=== PATIENT | male | born 1940 | race Caucasian/White ===

== ENCOUNTER 2021-12-22 18:44 | Inpatient (IN) | payer MEDICARE, BC ==
[~2021-12-22] VITALS: Ht 182.9 cm; Wt 83.9 kg
[2021-12-22 10:25] VITALS: BP 149/75
--- NOTE | 2021-12-22 22:30 | NUR ---
Admitted from [facility] via gurney Dx: Lumbar stenosis, s/p L2-S1 decompression sx. Back sx incision intact, no foul odor, dressing changed prior to transfer. Alert and oriented x4, not in resp distress. Routine admission care rendered. Oriented to room, BR, TV and call light. Initiated care plan. Needs assessed and attended to. Call light placed within easy reach.
[2021-12-23] MEDS ORDERED: PRAV40TA3 PO ×2 (00:09→10:23)
[2021-12-23] MEDS ORDERED: FINA1TAB11 PO (00:09)
[2021-12-23] MEDS ORDERED: MAGN400T26 PO (00:09)
[2021-12-23] MEDS ORDERED: GABA-532 PO (00:09)
[2021-12-23] MEDS ORDERED: AMLO5TAB4 PO (00:09)
[2021-12-23] MEDS ORDERED: SENN-261 PO (00:29)
[2021-12-23] MEDS ORDERED: HYDR-4209 PO (00:29)
[2021-12-23] MEDS ORDERED: ONDA4TAB11 PO (00:29)
[2021-12-23] MEDS ORDERED: HYDR-3980 PO (00:29)
[2021-12-23] MEDS ORDERED: OLME40TA12 PO ×2 (00:29→10:23)
[2021-12-23] MEDS ORDERED: DOCU100C36 PO (00:29)
[2021-12-23] MEDS ORDERED: CYCL5TAB PO (00:29)
[2021-12-23] MEDS ORDERED: MULT-213 PO (00:29)
[2021-12-23] MEDS ORDERED: TAMS-3 PO (00:29)
[2021-12-23] MEDS ORDERED: TADA5TAB2 PO (00:29)
[2021-12-23 04:00] VITALS: BP 134/68
[2021-12-23] MEDS ORDERED: HYDROCODONE/APAP 5-325MG TABLET PO PRN ×2 (04:45→15:00)
[2021-12-23 08:00] VITALS: BP 124/63
[2021-12-23] MEDS: REMEDY ESSENTIAL ZINC PASTE 113 GM TOP SCH ×2 (09:43→20:53)
[2021-12-23] MEDS ORDERED: CYCLOBENZAPRINE HCL 10 MG TABLET PO PRN (10:00)
[2021-12-23] MEDS ORDERED: ONDANSETRON HCL 4 MG TABLET PO PRN (10:00)
[2021-12-23] MEDS ORDERED: MAGNESIUM OXIDE 400 MG TABLET PO ONE (10:00)
[2021-12-23] MEDS ORDERED: DOCUSATE SODIUM 100 MG CAPSULE PO PRN ×2 (10:00→15:17)
[2021-12-23] MEDS ORDERED: SENNOSIDES 1 TABLET PO PRN (10:00)
[2021-12-23 10:58] LABS: HEMATOCRIT 30.4 % (36.7-47.1); MEAN CORPUSCULAR HEMOGLOBIN 32.5 uug (23.8-33.4); MEAN CORPUSCULAR VOLUME 96.2 fL (73.0-96.2); PLATELET COUNT (AUTO) 150 K/uL (152-348)
[2021-12-23 11:11] LABS: BILIRUBIN,TOTAL 0.4 mg/dL (0.2-1.0); CREATININE 1.3 mg/dL (0.6-1.3); MAGNESIUM 1.8 mg/dL (1.8-2.4); PHOSPHOROUS 2.1 mg/dL (2.5-4.9); POTASSIUM 3.8 mmol/L (3.5-5.1); TOTAL PROTEIN, SERUM 6.1 g/dL (6.4-8.2)
[2021-12-23] MEDS: GABAPENTIN 300 MG CAPSULE PO SCH ×3 (13:53→20:53)
[2021-12-23] MEDS ORDERED: ONDANSETRON ODT 4 MG TAB.RAPDIS SL PRN (15:00)
[2021-12-23] MEDS: AMLODIPINE 5 MG TABLET PO SCH (15:31)
[2021-12-23 16:00] VITALS: BP 148/76
[2021-12-23] MEDS ORDERED: NEUTRA PHOS PACKET PO ONE (16:00)
[2021-12-23] MEDS ORDERED: GABAPENTIN 100 MG CAPSULE PO SCH (17:00)
[2021-12-23] MEDS ORDERED: DOCUSATE SODIUM 100 MG CAPSULE PO SCH (17:00)
[2021-12-23] MEDS ORDERED: Medication Not On Formulary EA (Cyclobenzaprine Hcl 5 MG) PO SCH (17:00)
[2021-12-23] MEDS ORDERED: SENNOSIDES 1 TABLET PO SCH (17:00)
--- NOTE | 2021-12-23 20:00 | NUR ---
NSG: Received patient lying in bed. alert and oriented x4, no c/o pain or discomfort at this time. assisted to use bedside commode. and back to bed. call light w/in reach.
[2021-12-23 20:06] VITALS: BP 115/55
[2021-12-23] MEDS: TAMSULOSIN HCL 0.4 MG CAP.SR.24H PO SCH (20:53)
[2021-12-23] MEDS: ATORVASTATIN 10 MG TABLET PO SCH (20:53)
[2021-12-24 04:00] VITALS: BP 137/76
--- NOTE | 2021-12-24 04:15 | NUR ---
senokot 1 tab po given Early due to patient constipated.
--- NOTE | 2021-12-24 06:36 | NUR ---
remain calm and cooperative with meds and care. patient still constipated. 240 ml prune juice po given. resting in bed.call light w/in reach.
[2021-12-24 07:33] VITALS: BP 139/75
[2021-12-24 07:47] LABS: THYROID STIMULATING HORMONE 1.125 mIU/mL (0.358-3.740)
[2021-12-24] MEDS ORDERED: MULTIVITAMINS,THERAPEUTIC TABLET PO SCH (09:00)
[2021-12-24] MEDS ORDERED: TAMSULOSIN HCL 0.4 MG CAP.SR.24H PO SCH (09:00)
[2021-12-24] MEDS ORDERED: Medication Not On Formulary EA (Multivitamins W-Minerals (Multivitamin With Minerals) 1 PO SCH (09:00)
[2021-12-24] MEDS ORDERED: AMLODIPINE 5 MG TABLET PO SCH (09:00)
[2021-12-24] MEDS ORDERED: Medication Not On Formulary EA (Finasteride 1 MG) PO SCH (09:00)
[2021-12-24] MEDS ORDERED: Medication Not On Formulary EA (Olmesartan Medoxomil (Benicar) 40 MG) PO SCH (09:00)
[2021-12-24] MEDS ORDERED: MAGNESIUM OXIDE 400 MG TABLET PO SCH (09:00)
[2021-12-24] MEDS: GABAPENTIN 300 MG CAPSULE PO SCH ×4 (09:48→21:08)
[2021-12-24] MEDS: FINASTERIDE 5 MG TABLET PO SCH (09:49)
[2021-12-24] MEDS: MULTIVIT, IRON, MIN NO. 8, FA TABLET PO SCH (09:49)
[2021-12-24] MEDS: LOSARTAN POTASSIUM 50 MG TABLET PO SCH (09:49)
[2021-12-24] MEDS: MAGNESIUM OXIDE 400 MG TABLET PO SCH (09:49)
[2021-12-24] MEDS: AMLODIPINE 5 MG TABLET PO SCH (09:49)
[2021-12-24] MEDS: REMEDY ESSENTIAL ZINC PASTE 113 GM TOP SCH ×2 (09:50→21:00)
[2021-12-24] MEDS: DOCUSATE SODIUM 100 MG CAPSULE PO SCH ×2 (13:29→20:59)
[2021-12-24] MEDS: SENNOSIDES 1 TABLET PO SCH ×2 (13:30→20:59)
[2021-12-24 16:10] VITALS: BP 135/62
[2021-12-24] MEDS: ENSURE ENLIVE (VAN) 240 ML LIQUID PO SCH (17:08)
[2021-12-24 20:00] VITALS: BP 123/59
--- NOTE | 2021-12-24 20:30 | NUR ---
PATIENT TEMP 101.0. B/P 123/59 HR 85 RESP 18 SAT 94% IN R00M AIR. jeremi Cheek made aware via phone. tylenol 650 mg po given as ordered. cooling measure provided. encouraged po intake. stat blood culture done. waiting for chest x-ray. patient is resting in bed comfortably. call light w/in reach.
[2021-12-24] MEDS: ATORVASTATIN 10 MG TABLET PO SCH (20:59)
[2021-12-24] MEDS: TAMSULOSIN HCL 0.4 MG CAP.SR.24H PO SCH (20:59)
[2021-12-24] MEDS: ACETAMINOPHEN 325 MG TABLET PO PRN (20:59)
[2021-12-24 21:00] VITALS: BP 125/62
--- NOTE | 2021-12-24 21:00 | NUR ---
NSG: ROBY collected and sent to lab.
[2021-12-24 21:20] LABS: HEMATOCRIT 29.7 % (36.7-47.1); MEAN CORPUSCULAR VOLUME 95.5 fL (73.0-96.2); PLATELET COUNT (AUTO) 159 K/uL (152-348)
[2021-12-24 21:23] LABS: CREATININE 1.1 mg/dL (0.6-1.3); POTASSIUM 3.8 mmol/L (3.5-5.1)
[2021-12-24 21:46] LABS: *BILIRUBIN,URIN NEGATIVE (NEGATIVE); *BLOOD, URINE 1+ (NEGATIVE); *CLARITY,URINE CLEAR (CLEAR); *COLOR,URINE YELLOW (YELLOW); *KETONES,URINE NEGATIVE (NEGATIVE); *UROBILINOGEN,URINE 0.2 E.U./dl (NORMAL); LEUKOCYTE ESTERASE ,URINE NEGATIVE (NEGATIVE); NITRITE, URINE NEGATIVE (NEGATIVE); PH,URINE 6.5 (5.0-8.0); UGLUCOSE NEGATIVE (NEGATIVE)
[2021-12-24 21:56] LABS: BACTERIA,URINE FEW /HPF (NONE SEEN); RBC,URINE 0-3 /HPF (0-3); SQUAMOUS EPITHELIAL CELL,UR FEW /HPF (NONE SEEN); WBC,URINE 0-3 /HPF (0-3)
--- NOTE | 2021-12-24 22:31 | NUR ---
NSG: Dressing changed. incision intact, no foul odor, yellowish draining noted.patient is Alert and oriented x4, not in resp distress. Resting in bed comfortably. call light w/in reach.
--- NOTE | 2021-12-25 05:31 | NUR ---
nsg: patient resting in bed comfortably. respiration even and unlabored. uses urinal. incision dressing c/d/i. no c/o pain or discomfort at this time. call light w/in reach.
[2021-12-25 07:43] VITALS: BP 135/79
[2021-12-25] MEDS: MAGNESIUM OXIDE 400 MG TABLET PO SCH (08:17)
[2021-12-25] MEDS: SENNOSIDES 1 TABLET PO SCH ×2 (08:17→20:28)
[2021-12-25] MEDS: FINASTERIDE 5 MG TABLET PO SCH (08:17)
[2021-12-25] MEDS: MULTIVIT, IRON, MIN NO. 8, FA TABLET PO SCH (08:17)
[2021-12-25] MEDS: LOSARTAN POTASSIUM 50 MG TABLET PO SCH (08:17)
[2021-12-25] MEDS: GABAPENTIN 300 MG CAPSULE PO SCH ×4 (08:17→20:27)
[2021-12-25] MEDS: AMLODIPINE 5 MG TABLET PO SCH (08:17)
[2021-12-25] MEDS: ENSURE ENLIVE (VAN) 240 ML LIQUID PO SCH ×2 (08:18→17:00)
[2021-12-25] MEDS: DOCUSATE SODIUM 100 MG CAPSULE PO SCH ×2 (08:18→20:27)
[2021-12-25] MEDS: REMEDY ESSENTIAL ZINC PASTE 113 GM TOP SCH ×2 (09:06→20:28)
--- NOTE | 2021-12-25 12:45 | NUR ---
INDIVIDUALIZED PLAN OF CARE
[2021-12-25] MEDS: ACETAMINOPHEN 325 MG TABLET PO PRN (14:05)
[2021-12-25 17:05] VITALS: BP 102/55
[2021-12-25] MEDS: TADALAFIL 10 MG PO SCH (18:03)
[2021-12-25 20:00] VITALS: BP 108/48
[2021-12-25] MEDS: TAMSULOSIN HCL 0.4 MG CAP.SR.24H PO SCH (20:27)
[2021-12-25] MEDS: ATORVASTATIN 10 MG TABLET PO SCH (20:28)
[2021-12-26 04:00] VITALS: BP 108/57
[2021-12-26 08:07] VITALS: BP 124/75
[2021-12-26] MEDS: ENSURE ENLIVE (VAN) 240 ML LIQUID PO SCH ×2 (08:41→17:07)
[2021-12-26] MEDS: MAGNESIUM OXIDE 400 MG TABLET PO SCH (08:43)
[2021-12-26] MEDS: FINASTERIDE 5 MG TABLET PO SCH (08:43)
[2021-12-26] MEDS: GABAPENTIN 300 MG CAPSULE PO SCH ×4 (08:43→21:10)
[2021-12-26] MEDS: MULTIVIT, IRON, MIN NO. 8, FA TABLET PO SCH (08:43)
[2021-12-26] MEDS: AMLODIPINE 5 MG TABLET PO SCH (08:47)
[2021-12-26] MEDS: SENNOSIDES 1 TABLET PO SCH ×2 (08:56→21:10)
[2021-12-26] MEDS: DOCUSATE SODIUM 100 MG CAPSULE PO SCH ×2 (08:56→21:10)
[2021-12-26] MEDS: REMEDY ESSENTIAL ZINC PASTE 113 GM TOP SCH ×2 (08:57→21:10)
[2021-12-26] MEDS: TADALAFIL 10 MG PO SCH (12:38)
[2021-12-26] MEDS ORDERED: MAG HYDROX/AL HYDROX/SIMETH 30 ML LIQUID UDC PO PRN (13:15)
[2021-12-26] MEDS: PANTOPRAZOLE SODIUM 40 MG TABLET.DR PO SCH (13:25)
--- NOTE | 2021-12-26 13:25 | NUR ---
c/o of acid reflux, seen by dr Hernandez- with orders, maalox given ans Protonix as well
--- NOTE | 2021-12-26 16:00 | NUR ---
states acid reflux better, at bedside
[2021-12-26] MEDS: ACETAMINOPHEN 325 MG TABLET PO PRN (16:03)
[2021-12-26 16:35] VITALS: BP 118/63
--- NOTE | 2021-12-26 16:45 | NUR ---
informed hospitalist of elevated temp- orders given urine, cooling measures given
--- NOTE | 2021-12-26 18:14 | NUR ---
temp rechecked 99.0 orally- urine sent to lab
[2021-12-26 19:14] LABS: *BILIRUBIN,URIN NEGATIVE (NEGATIVE); *BLOOD, URINE NEGATIVE (NEGATIVE); *CLARITY,URINE CLEAR (CLEAR); *COLOR,URINE YELLOW (YELLOW); *KETONES,URINE NEGATIVE (NEGATIVE); *UROBILINOGEN,URINE 0.2 E.U./dl (NORMAL); LEUKOCYTE ESTERASE ,URINE NEGATIVE (NEGATIVE); NITRITE, URINE NEGATIVE (NEGATIVE); PH,URINE 5.5 (5.0-8.0); UGLUCOSE NEGATIVE (NEGATIVE)
[2021-12-26 19:24] LABS: BACTERIA,URINE FEW /HPF (NONE SEEN); RBC,URINE NONE SEEN /HPF (0-3); SQUAMOUS EPITHELIAL CELL,UR FEW /HPF (NONE SEEN); WBC,URINE 0-3 /HPF (0-3)
[2021-12-26 19:25] LABS: COARSE GRANULAR CASTS,URINE 0-3 /LPF
[2021-12-26 20:00] VITALS: BP 103/49
[2021-12-26] MEDS: ATORVASTATIN 10 MG TABLET PO SCH (21:10)
[2021-12-26] MEDS: TAMSULOSIN HCL 0.4 MG CAP.SR.24H PO SCH (21:10)
--- NOTE | 2021-12-27 | NUR ---
RECEIVED PT ALERT AND ORIENTED X4 PT WAS GIVEN MEDICATION ORDERED NO SIGNS OF ADVERSE REACTION FROM PAIN MEDICATIONS WILL ENDORSE TO AM NURSE.
[2021-12-27 04:00] VITALS: BP 115/50
[2021-12-27] MEDS: PANTOPRAZOLE SODIUM 40 MG TABLET.DR PO SCH (06:39)
[2021-12-27 06:47] LABS: HEMATOCRIT 27.2 % (36.7-47.1); MEAN CORPUSCULAR HEMOGLOBIN 32.8 uug (23.8-33.4); MEAN CORPUSCULAR VOLUME 92.7 fL (73.0-96.2); PLATELET COUNT (AUTO) 198 K/uL (152-348)
[2021-12-27 06:50] LABS: BILIRUBIN,TOTAL 0.5 mg/dL (0.2-1.0); CREATININE 1.2 mg/dL (0.6-1.3); PHOSPHOROUS 4.1 mg/dL (2.5-4.9); POTASSIUM 3.6 mmol/L (3.5-5.1); TOTAL PROTEIN, SERUM 5.5 g/dL (6.4-8.2)
[2021-12-27 07:56] VITALS: BP 111/56
--- NOTE | 2021-12-27 08:30 | NUR ---
Dr Suarez saw pt- informed of elevated yesterday-pt resting in bed, denies of any discomfort, call light within reach
[2021-12-27] MEDS: ENSURE ENLIVE (VAN) 240 ML LIQUID PO SCH ×2 (09:13→17:38)
[2021-12-27] MEDS: TADALAFIL 10 MG PO SCH (09:15)
[2021-12-27] MEDS: DOCUSATE SODIUM 100 MG CAPSULE PO SCH ×2 (09:17→20:36)
[2021-12-27] MEDS: SENNOSIDES 1 TABLET PO SCH ×2 (09:17→20:35)
[2021-12-27] MEDS: FINASTERIDE 5 MG TABLET PO SCH (09:17)
[2021-12-27] MEDS: MULTIVIT, IRON, MIN NO. 8, FA TABLET PO SCH (09:17)
[2021-12-27] MEDS: GABAPENTIN 300 MG CAPSULE PO SCH ×4 (09:17→20:35)
[2021-12-27] MEDS: MAGNESIUM OXIDE 400 MG TABLET PO SCH (09:18)
[2021-12-27] MEDS: REMEDY ESSENTIAL ZINC PASTE 113 GM TOP SCH ×2 (09:18→20:24)
[2021-12-27 12:06] LABS: HEMATOCRIT 31.5 % (36.7-47.1); MEAN CORPUSCULAR HEMOGLOBIN 32.1 uug (23.8-33.4); MEAN CORPUSCULAR VOLUME 94.8 fL (73.0-96.2); PLATELET COUNT (AUTO) 258 K/uL (152-348)
[2021-12-27 12:24] LABS: CARBON DIOXIDE 30 mmol/L (21-32); CHLORIDE 102 mmol/L (98-107); CREATININE 1.4 mg/dL (0.6-1.3); GLUCOSE 104 mg/dL (74-106); POTASSIUM 3.1 mmol/L (3.5-5.1); UREA NITROGEN, BLOOD 30 mg/dL (7-18)
[2021-12-27 12:30] LABS: ALANINE AMINOTRANSFERASE 82 U/L (16-63); ALKALINE PHOSPHATASE 215 U/L (50-136); BILIRUBIN,TOTAL 0.4 mg/dL (0.2-1.0); TOTAL PROTEIN, SERUM 6.7 g/dL (6.4-8.2)
[2021-12-27 12:54] LABS: ASPARTATE AMINOTRANSFERASE 65 U/L (15-37)
[2021-12-27 16:00] VITALS: BP 119/68
--- NOTE | 2021-12-27 18:20 | NUR ---
participated with his rehab therapy, no distress noted, all needs attended and met, call light within reach
[2021-12-27] MEDS: TAMSULOSIN HCL 0.4 MG CAP.SR.24H PO SCH (20:35)
[2021-12-27] MEDS: ATORVASTATIN 10 MG TABLET PO SCH (20:35)
--- NOTE | 2021-12-27 20:35 | NUR ---
due po medication given to patient tolerated with sips of water . [id number].no s/s of respiratory distress noted . advised patient to call and to used the call light if he needs help . patient verbalized understanding .
[2021-12-27 20:50] VITALS: BP 109/47
--- NOTE | 2021-12-27 22:30 | NUR ---
rounds made patient in bed pts. verbalized his going to sleep now , advised patient to call for help and to used the [employer] system patient verbalized understanding . urinal placed with in reach.
[2021-12-28 04:20] VITALS: BP 116/67
[2021-12-28] MEDS: PANTOPRAZOLE SODIUM 40 MG TABLET.DR PO SCH (06:23)
[2021-12-28 08:09] VITALS: BP 137/71
[2021-12-28] MEDS: MULTIVIT, IRON, MIN NO. 8, FA TABLET PO SCH (08:25)
[2021-12-28] MEDS: GABAPENTIN 300 MG CAPSULE PO SCH ×2 (08:25→13:13)
[2021-12-28] MEDS: DOCUSATE SODIUM 100 MG CAPSULE PO SCH (08:25)
[2021-12-28] MEDS: FINASTERIDE 5 MG TABLET PO SCH (08:25)
[2021-12-28] MEDS: SENNOSIDES 1 TABLET PO SCH (08:25)
[2021-12-28] MEDS: REMEDY ESSENTIAL ZINC PASTE 113 GM TOP SCH (08:26)
[2021-12-28] MEDS: MAGNESIUM OXIDE 400 MG TABLET PO SCH (08:26)
[2021-12-28] MEDS: TADALAFIL 10 MG PO SCH (08:27)
[2021-12-28] MEDS: ENSURE ENLIVE (VAN) 240 ML LIQUID PO SCH (08:28)
[2021-12-28] MEDS ORDERED: AMLO5TAB4 PO (11:12)
[2021-12-28] MEDS ORDERED: DOCU100C36 PO (11:12)
[2021-12-28] MEDS ORDERED: FINA1TAB11 PO (11:12)
[2021-12-28] MEDS ORDERED: OLME40TA12 PO (11:12)
[2021-12-28] MEDS ORDERED: TADA5TAB2 PO (11:12)
[2021-12-28] MEDS ORDERED: GABA-532 PO (11:12)
[2021-12-28] MEDS ORDERED: TAMS-3 PO (11:12)
[2021-12-28] MEDS ORDERED: PRAV40TA3 PO (11:12)
--- NOTE | 2021-12-28 11:35 | NUR ---
0730-Rec'd patient in bed, awake, A/Ox4, no respiratory distress noted. Patient is Mongolian/Hungarian speaking, safety measures in place, call light at reach, encouraged to please use it every time help is needed with good understanding. 0900-Scheduled/due medication administered with no ASE noted, patient still eating breakfast at this time. No swallowing difficulties noted, oral fluids taken well.Patient denies pain, will be discharge later on in the day. Assist with ADLs and as needed. 1100-Dr.Berg Arriaga finalizing discharge orders at this time. Patient will be picked up by his at 2:00pm.
[2021-12-28] MEDS: ACETAMINOPHEN 325 MG TABLET PO PRN (13:12)
--- NOTE | 2021-12-28 15:01 | NUR ---
1400-Patient was discharge home safely, was escorted to main entrance and assisted into the care safely. Discharge instructions provided with good verbal demonstration returned. Belongings taken-FWW, back brace, a black cell phone with a certification and selection specialist and with personal items; medication brought from home given. Patient left in good stable conditions, free of pain. No physical or respiratory distress noted; VSS and logged under discharge paperwork.
== END 2021-12-28 14:00 | disposition home health service (06) | DRG 561 ==
PROVIDERS: ADMIT Physical Medicine & Rehabilitation Pain Medicine; ATTEND Physical Medicine & Rehabilitation Pain Medicine
DX: Z47.89 Encounter for other orthopedic aftercare (principal); E78.5 Hyperlipidemia, unspecified; G47.30 Sleep apnea, unspecified; G89.29 Other chronic pain; I12.9 Hypertensive chronic kidney disease with stage 1 through stage 4 chronic kidney disease, or unspecified chronic kidney disease; K44.9 Diaphragmatic hernia without obstruction or gangrene; M48.061 Spinal stenosis, lumbar region without neurogenic claudication; M51.36 Other intervertebral disc degeneration, lumbar region; N40.0 Benign prostatic hyperplasia without lower urinary tract symptoms; Z86.711 Personal history of pulmonary embolism; M62.838 Other muscle spasm; N18.30 Chronic kidney disease, stage 3 unspecified; I69.398 Other sequelae of cerebral infarction; R26.89 Other abnormalities of gait and mobility; D72.829 Elevated white blood cell count, unspecified; Z79.891 Long term (current) use of opiate analgesic; E87.6 Hypokalemia; Z91.048 Other nonmedicinal substance allergy status
CPT/HCPCS: 36415; 71045; 83735; 84100; 84443; 85025; 86592; 87040; 87086; 97535-GO-CO

== ENCOUNTER 2024-05-29 12:07 | Emergency (ER) | payer MEDICARE, BC ==
[~2024-05-29] VITALS: Ht 182.9 cm; Wt 83.9 kg
[~2024-05-29 12:07] MED LIST: AMLO5TAB4 PO; CYCL5TAB PO; DOCU100C36 PO; FINA1TAB11 PO; GABA-532 PO; HYDR-4209 PO; MAGN400T26 PO; MULT-213 PO; OLME40TA12 PO; PRAV40TA3 PO; TADA5TAB2 PO; TAMS-3 PO
[2024-05-29] MEDS ORDERED: FINA5TAB11 PO (12:25)
[2024-05-29] MEDS ORDERED: BUPR2TAB3 SL (12:25)
[2024-05-29] MEDS ORDERED: OLME40TA18 PO (12:25)
[2024-05-29] MEDS ORDERED: AMLO-212 PO (12:25)
[2024-05-29] MEDS ORDERED: TRAM100C2 PO (12:25)
[2024-05-29] MEDS ORDERED: ASPIRIN 325 MG TABLET ONE (12:38)
[2024-05-29] MEDS ORDERED: HEPARIN/D5W DRIP 500 ML ONE (12:39)
[2024-05-29 12:40] LABS: BASOPHILS # (AUTO) 0.1 K/UL (0.0-0.2); BASOPHILS % (AUTO) 0.6 % (0.0-2.0); EOSINOPHILS # (AUTO) 0.1 K/uL (0.0-0.7); EOSINOPHILS % (AUTO) 1.2 % (0.0-7.0); HEMATOCRIT 36.4 % (36.7-47.1); HEMOGLOBIN 12.1 g/dL (12.5-16.3); LYMPHOCYTES # (AUTO) 0.6 K/uL (0.8-4.8); LYMPHOCYTES % (AUTO) 5.2 % (20.5-51.5); MEAN CORPUSCULAR HEMOGLOBIN 31.8 uug (23.8-33.4); MEAN CORPUSCULAR HGB CONC 33 g/dL (32.5-36.3); MEAN CORPUSCULAR VOLUME 95.5 fL (73.0-96.2); MONOCYTES # (AUTO) 0.3 K/uL (0.1-1.30); MONOCYTES % (AUTO) 2.7 % (0.0-11.0); NEUTROPHILS # (AUTO) 10.1 K/uL (1.8-8.9); NEUTROPHILS % (AUTO) 90.3 % (38.5-71.5); PLATELET COUNT (AUTO) 151 K/uL (152-348); RED BLOOD CELL COUNT(AUTO) 3.81 MIL/uL (4.06-5.63); RED CELL DISTRIBUTION WIDTH 15.5 % (12.1-16.2); WHITE BLOOD COUNT (AUTO) 11.2 K/uL (3.6-10.2)
[2024-05-29] MEDS: ASPIRIN 325 MG TABLET PO ONE (12:44)
[2024-05-29 12:53] LABS: DIFFERENTIAL COMMENT 1
[2024-05-29 12:58] LABS: CALCIUM 9.5 mg/dL (8.5-10.1); CARBON DIOXIDE 28 mmol/L (21-32); CHLORIDE 107 mmol/L (98-107); CREATININE 1.2 mg/dL (0.6-1.3); GLUCOSE 186 mg/dL (74-106); POTASSIUM 3.8 mmol/L (3.5-5.1); SODIUM SERUM 145 mmol/L (136-145); UREA NITROGEN, BLOOD 29 mg/dL (7-18)
[2024-05-29] MEDS ORDERED: HEPARIN SODIUM,PORCINE 5,000 UNITS/ML VIAL ONE (13:02)
[2024-05-29] MEDS: HEPARIN/D5W DRIP 500 ML IV ONE (13:09)
[2024-05-29 13:11] LABS: ALANINE AMINOTRANSFERASE 26 U/L (16-63); ALBUMIN 3.8 g/dL (3.4-5.0); ALKALINE PHOSPHATASE 75 U/L (50-136); ASPARTATE AMINOTRANSFERASE 21 U/L (15-37); BILIRUBIN,DIRECT 0.1 mg/dL (0.0-0.2); BILIRUBIN,TOTAL 0.5 mg/dL (0.2-1.0); NT-PRO BNP 203 pg/mL (0-125)
[2024-05-29] MEDS ORDERED: DILTIAZEM HCL 25 MG IV ONE (13:54)
[2024-05-29] MEDS: DILTIAZEM HCL 25 MG IV IV ONE (14:03)
[2024-05-29] MEDS ORDERED: ENOXAPARIN SODIUM 80 MG/0.8 ML DISP.SYRIN SQ ONE (15:30)
[2024-05-29] MEDS ORDERED: REMEDY ESSENTIAL ZINC PASTE 113 GM TP PRN (15:30)
[2024-05-29] MEDS ORDERED: MAGNESIUM HYDROXIDE 30 ML LIQUID UDC PO PRN (15:30)
[2024-05-29] MEDS ORDERED: DILTIAZEM HCL IV 125 MG in IV NORMAL SALINE 100 ML IV PRN (15:30)
[2024-05-29] MEDS ORDERED: ACETAMINOPHEN 325 MG TABLET PO PRN (15:30)
[2024-05-29] MEDS ORDERED: ONDANSETRON 4 MG/2 ML VIAL IV PRN (15:30)
[2024-05-29] MEDS ORDERED: APIX5TAB4 PO (16:40)
[2024-05-29] MEDS ORDERED: METO25TA6 PO (16:40)
[2024-05-29 17:26] VITALS: BP 136/88; TEMP 97.6; O2SAT 99
== END 2024-05-29 17:27 | disposition home or self-care (01) ==
LOC: ER 12:07
DX: I48.0 Paroxysmal atrial fibrillation (principal); M45.9 Ankylosing spondylitis of unspecified sites in spine; N40.0 Benign prostatic hyperplasia without lower urinary tract symptoms; R79.89 Other specified abnormal findings of blood chemistry; Z79.01 Long term (current) use of anticoagulants; Z79.899 Other long term (current) drug therapy; Z86.73 Personal history of transient ischemic attack (TIA), and cerebral infarction without residual deficits
CPT/HCPCS: 99285; 93307; 96365; 96366; 71045; 96375; 80076; 80048; 83880; 85025; 85379; 85730; 84484 ×3; 36415; 93005 ×2; J3490; J1644 ×2; A4606; A4663